=== PATIENT | female | born 1995 | race American Indian/Alaskan Native ===

== ENCOUNTER 2016-12-20 13:24 | Emergency (ER) | payer MEDICAID, OTHER ==
[2016-12-20 13:40] VITALS: BP 119/78
--- NOTE | 2016-12-20 16:21 | Emergency Department Report ---
HPI - General Chief Complaint: Back Pain/Injury Time Seen by Provider: 12/20/16 15:37 - HPI HPI: She is a 21-year-old female with no prior medical history presents to ED complaining of right sided low lumbar back pain that radiates down her thighs in the anteriorly 3 days as she about 3 days ago she recalled getting to vegetable picker her and notices the pain. She states the pain has been slightly worse since then. She denies fevers/chills/vomiting/dysuria/vaginal bleeding/cough/chest pain/ shortness of breath or any other problems ED Past Medical Hx - Past Medical History Previous Medical History?: No - Surgical History Past Surgical History?: No - Social History Smoking Status: Never Smoker Substance Use Type: None ED Review of Systems ROS: Stated complaint: LOWER BACK AND RIGHT THIGH PAIN Other details as noted in HPI Constitutional: denies: chills, fever Eyes: denies: eye pain, eye discharge, vision change ENT: denies: ear pain, throat pain Respiratory: denies: cough, shortness of breath, wheezing Cardiovascular: denies: chest pain, palpitations Endocrine: no symptoms reported Gastrointestinal: denies: abdominal pain, nausea, diarrhea Genitourinary: denies: urgency, dysuria, discharge Musculoskeletal: denies: back pain, joint swelling, arthralgia Skin: denies: rash, lesions Neurological: denies: headache, weakness, paresthesias Psychiatric: denies: anxiety, depression Hematological/Lymphatic: denies: easy bleeding, easy bruising Physical Exam - Physical Exam Vital Signs: Vital Signs 12/20/16 13:33 Temperature 98.6 F Pulse Rate 72 Respiratory 20 Rate Blood Pressure 119/78 Physical Exam: GENERAL: Alert and oriented x3, no apparent distress, Normal Gait, atraumatic. NECK: Supple. Non edematous, No carotid bruits. No lymphadenopathy or thyromegaly. No C-spine tenderness LUNGS: Symetrical with respiration, No wheezing, no rales or crackles, CTAB. HEART: S1, S2 present, regular rate and rhythm without murmur, no rubs, no gallops. ABDOMEN: No organomegaly was noted,Positive bowel sounds, soft, and non- distended. . Nontender to palpation on all Quadrants, NO CVA tenderness. EXTREMITIES/MUSCULOSKELETAL: No cyanosis, clubbing, rash, lesions or edema. Full ROM bilaterally. UE/LE Pulses 2+ bilaterally. LE and UE 5+ strength bilaterally, straight leg raise positive on the right side NEUROLOGIC: The patient is cooperative with no focal neurologic deficits. Cranial nerves II through XII are grossly intact. Normal speech. . SKIN: Warm and dry, No lesions, No ulceration or induration present. ED Course Vital Signs 12/20/16 13:33 Temperature 98.6 F Pulse Rate 72 Respiratory 20 Rate Blood Pressure 119/78 ED Medical Decision Making - Medical Decision Making 21-year-old female presents to ED for lumbar radiculopathy/ED course: ED course: Patient declined medication in ER states she is not like to take medication Discussed the patient will need to follow up with neurology if pain worsens or continues. Discussed with patient need to follow-up with primary care physician as referred as well. Discussed the patient's symptoms worsen to return to ED. She was given referrals for [employer] specialties as she states she has not the follow -up since she delivered her one year-old twins. Vital signs are normal patient is in no acute distress patient was talking appropriately in ED. patient understands instructions given and states she will follow up Critical care attestation.: If time is entered above; I have spent that time in minutes in the direct care of this critically ill patient, excluding procedure time. ED Disposition Clinical Impression: Lumbar radiculopathy Disposition: DISCHARGED TO HOME OR SELFCARE Is pt being admited?: No Does the pt Need Aspirin: No Condition: Stable Instructions: Sciatica (ED), Lumbar Radiculopathy (ED) Referrals: EMIR RIVERA MD [Primary Care Provider] - 3-5 Days DANIKA TODD MD [Staff Physician] - 3-5 Days WANDA IGNACIO MD [Referring] - 3-5 Days JUANJO MCCLELLAN MD [Staff Physician] - 3-5 Days [facility] [Outside] - 3-5 Days Forms: Work/School Release Form Time of Disposition: 16:18
== END 2016-12-20 18:00 | disposition home or self-care (01) ==
LOC: ED 13:24
DX: M54.16 Radiculopathy, lumbar region (principal)
CPT/HCPCS: 99282